=== PATIENT | male | born 1955 | race American Indian/Alaskan Native ===

== ENCOUNTER 2018-03-02 13:39 | Emergency (ER) | payer MEDICARE ==
[2018-03-02] MEDS ORDERED: TORADOL IM ONE (17:48)
--- NOTE | 2018-03-02 18:54 | Emergency Department Report ---
ED Fall HPI - General Chief Complaint: Fall Stated Complaint: BACK PAIN/SOB/PAIN Time Seen by Provider: 03/02/18 17:40 Source: patient Mode of arrival: Ambulatory - History of Present Illness Initial Comments: This is a 62-year-old male nontoxic, well nourished in appearance, no acute signs of distress presents to the ED with c/o of acute mid back and left rib pain. Patient stated he had a 6 feet fall from a ladder 1 week ago and landed on his left rib/mid back area. Patient denies any head trauma or neck trauma. Patient denies any radiation of pain. Patient denies any other trauma. Denies any bladder or bowel instability. Patient denies any abdominal pain or lower back pain. Patient denies any urinary symptoms. Denies any fever, chills, nausea, vomiting, headache, stiff neck, chest pain or shortness of breath. Patient denies any numbness or tingling. Denies any allergies. PMH includes HTN. MD Complaint: fall -: week(s) (1) Fall From: from height (distance) (6) Fall Witnessed: no Loss of Consciousness: none Prolonged Down Time?: no Symptoms Prior to Fall: none Severity: mild Severity scale (0 -10): 8 Quality: aching Associated Symptoms: denies. denies: headache, neck pain, numbness, weakness, chest paint, shortness of breath, abdominal pain, hematuria, unable to walk, lightheaded, vertigo, confusion - Related Data Previous Rx's Medication Instructions Recorded Last Taken Type Cyclobenzaprine [Flexeril] 10 mg PO QHS PRN #10 tablet 03/02/18 Unknown Rx Ibuprofen [Motrin] 600 mg PO Q8H PRN #30 tablet 03/02/18 Unknown Rx levoFLOXacin [Levaquin TAB] 750 mg PO QDAY #5 tablet 03/02/18 Unknown Rx Allergies Allergy/AdvReac Type Severity Reaction Status Date / Time No Known Allergies Allergy Unverified 03/02/18 13:54 ED Review of Systems ROS: Stated complaint: BACK PAIN/SOB/PAIN Other details as noted in HPI Constitutional: denies: chills, fever Eyes: denies: eye pain, eye discharge, vision change ENT: denies: ear pain, throat pain Respiratory: denies: cough, shortness of breath, wheezing Cardiovascular: other (left rib pain). denies: chest pain, palpitations Endocrine: no symptoms reported Gastrointestinal: denies: abdominal pain, nausea, diarrhea Genitourinary: denies: urgency, dysuria Musculoskeletal: back pain. denies: joint swelling, arthralgia Skin: denies: rash, lesions Neurological: denies: headache, weakness, paresthesias Psychiatric: denies: anxiety, depression Hematological/Lymphatic: denies: easy bleeding, easy bruising ED Past Medical Hx - Past Medical History Hx Hypertension: Yes - Surgical History Additional Surgical History: neck, knee, elbow - Social History Smoking Status: Never Smoker Substance Use Type: None - Medications Home Medications: Home Medications Medication Instructions Recorded Confirmed Last Taken Type Cyclobenzaprine [Flexeril] 10 mg PO QHS PRN #10 tablet 03/02/18 Unknown Rx Ibuprofen [Motrin] 600 mg PO Q8H PRN #30 tablet 03/02/18 Unknown Rx levoFLOXacin [Levaquin TAB] 750 mg PO QDAY #5 tablet 03/02/18 Unknown Rx ED Physical Exam - General Limitations: No Limitations General appearance: alert, in no apparent distress - Head Head exam: Present: atraumatic, normocephalic - Eye Eye exam: Present: normal appearance Pupils: Present: normal accommodation - ENT ENT exam: Present: normal exam, mucous membranes moist - Neck Neck exam: Present: normal inspection, full ROM. Absent: tenderness, meningismus, lymphadenopathy - Respiratory Respiratory exam: Present: normal lung sounds bilaterally, chest wall tenderness (left lateral rib area). Absent: respiratory distress, wheezes, rales, rhonchi, stridor, accessory muscle use, decreased breath sounds, prolonged expiratory - Cardiovascular Cardiovascular Exam: Present: regular rate, normal rhythm, normal heart sounds. Absent: bradycardia, tachycardia, irregular rhythm, systolic murmur, diastolic murmur, rubs, gallop - GI/Abdominal GI/Abdominal exam: Present: soft, normal bowel sounds. Absent: distended, tenderness, guarding, rebound, rigid, diminished bowel sounds - Rectal Rectal exam: Present: deferred - Extremities Exam Extremities exam: Present: normal inspection, full ROM, normal capillary refill. Absent: tenderness, joint swelling - Back Exam Back exam: Present: normal inspection, full ROM, paraspinal tenderness ( thoracic paraspinal). Absent: tenderness, CVA tenderness (R), CVA tenderness (L ), muscle spasm, vertebral tenderness, rash noted - Expanded Back Exam Expanded Back exam: Absent: saddle anesthesia Back exam: Negative Straight Leg Raising: Left, Right - Neurological Exam Neurological exam: Present: alert, oriented X3, CN II-XII intact, normal gait - Expanded Neurological Exam Expanded Patient oriented to: Present: person, place, time Cranial nerves: EOM's Intact: Normal, Facial Sensation: Normal Cerebellar function: Finger to Nose: Normal Upper motor neuron: Pronator Drift: Normal Sensory exam: Upper Extremity Light Touch: Normal, Upper Extremity Pin Prick: Normal, Upper Extremity Temperature: Normal, UE 2 Point Discrimination: Normal, Lower Extremity Light Touch: Normal, Lower Extremity Pin Prick: Normal, Lower Extremity Temperature: Normal, LE 2 Point Discrimination: Normal Motor strength exam: RUE: 5, LUE: 5, RLE: 5, LLE: 5 Best Eye Response ([place]): (4) open spontaneously Best Motor Response ([place]): (6) obeys commands Best Verbal Response ([place]): (5) oriented [place] Total: 15 - Psychiatric Psychiatric exam: Present: normal affect, normal mood - Skin Skin exam: Present: warm, dry, intact, normal color. Absent: rash ED Course Vital Signs 03/02/18 13:54 Temperature 98.6 F Pulse Rate 66 Respiratory 18 Rate Blood Pressure 160/96 O2 Sat by Pulse 98 Oximetry - Reevaluation(s) Reevaluation #1: 03/02/18 19:09 Patient is speaking in full sentences with no signs of distress noted. ED Medical Decision Making - Medical Decision Making This is a 62-year-old male that presents with left rib contusion and thoracic spine strain. Patient is stable was examined by me. There is no spinal tenderness. There is no cauda equina syndrome during examination. No bladder or bowel instability. Ct scan of throacic and chest obtained and dictated by the radiologist. Patient was discussed of the findings and referred to oncologist for further evaluation. CT also shows that there is atelectasis versus infiltrate due to patient age I will start patient empirically with antibiotics. Patient received Toradol 30 mg IM and [place] in the ED which stated that his symptoms has resolved and subsided. There is no ecchymosis, swelling noted. Patient is discharged with muscle relaxant and Motrin. Patient was instructed not to operate any machinery while taking muscle relaxant as they cause her drowsiness. Patient was referred to Follow-up with a primary care doctor in 3-5 days or if symptoms worsen and continue return to emergency room as soon as possible. At time of discharge, the patient does not seem toxic or ill in appearance. No acute signs of distress noted. Patient agrees to discharge treatment plan of care. No further questions noted by the patient. This chart is dictated with using [employer] Critical care attestation.: If time is entered above; I have spent that time in minutes in the direct care of this critically ill patient, excluding procedure time. ED Disposition Clinical Impression: Fall Qualifiers: Encounter type: initial encounter Qualified Code(s): W19.XXXA - Unspecified fall, initial encounter Contusion of rib on left side Qualifiers: Encounter type: initial encounter Qualified Code(s): S20.212A - Contusion of left front wall of thorax, initial encounter Strain of thoracic spine Qualifiers: Encounter type: initial encounter Qualified Code(s): S29.019A - Strain of muscle and tendon of unspecified wall of thorax, initial encounter Disposition: DC-01 TO HOME OR SELFCARE Is pt being admited?: No Does the pt Need Aspirin: No Condition: Stable Instructions: Cyclobenzaprine (By mouth), Fall Prevention for Older Adults (ED) , Contusion in Adults (ED) Additional Instructions: Follow-up with a primary care/oncologist doctor in 3-5 days or if symptoms worsen and continue return to emergency room as soon as possible. Prescriptions: Cyclobenzaprine [Flexeril] 10 mg PO QHS PRN #10 tablet PRN Reason: Muscle Spasm Ibuprofen [Motrin] 600 mg PO Q8H PRN #30 tablet PRN Reason: Pain levoFLOXacin [Levaquin TAB] 750 mg PO QDAY #5 tablet Referrals: RAYSA SHAW MD [Primary Care Provider] - 3-5 Days PRIMARY CARE, [Referring] - 3-5 Days BITA MIRZA MD [Staff Physician] - 3-5 Days [facility] [Outside] - 3-5 Days Forms: Work/School Release Form(ED)
[2018-03-02] MEDS ORDERED: NORCO 7.5/325 PO ONE (19:06)
--- NOTE | 2018-03-02 19:25 | Cat Scan Report ---
FINAL REPORT EXAM: CT CHEST WO CON HISTORY: chest/thoracic spinal pain status post fall 6 feet. Left-sided thoracic/rib pain. TECHNIQUE: Axial helical imaging through the chest with sagittal and coronal reformatted images obtained. Comparison: CT thoracic spine also performed today FINDINGS: There is a small area of pulmonary consolidation in the medial aspect of the right upper lobe. Atelectasis versus infiltrate. There is no evidence of pneumothorax or pleural fluid collection. The trachea and bronchi are patent. Heart appears to be enlarged. There is atherosclerotic vascular calcification of the coronary arteries. The thoracic aorta is normal caliber. There are calcified mediastinal lymph nodes consistent with chronic granulomatous change. There is no evidence of pathologic intrathoracic adenopathy by CT size criteria. The visualized portion of the upper abdomen is notable for evidence of previous gastric banding procedure. The bony structures are notable for spondylitic change of the thoracic spine with multiple level degenerative facet change. Additionally there are numerous foci lytic change within the bony structures concerning for lytic bony metastases or possibly changes of multiple myeloma. There is no evidence of fracture. The visualized portion of the cervical spine is notable for marked canal stenosis in the lower cervical spine. IMPRESSION: 1. Small area pulmonary consolidation medial aspect right upper lobe. Atelectasis versus infiltrate. 2. Heart appears to be enlarged with evidence of atherosclerotic vascular calcification of the coronary arteries. 3. Calcified lymph nodes that likely represents chronic granulomatous change. 4. Previous gastric banding procedure. 5. Spondylitic change thoracic spine. 6. Numerous foci of lytic change in the bony structures concerning for lytic bony metastases or possible changes of multiple myeloma. 7. Marked canal stenosis lower cervical spine. 8. No evidence of fracture. The finding of lytic changes within the bones was discussed with JOSH Lazo at 7:20 p.m. March 02, 2018.
--- NOTE | 2018-03-02 19:26 | Cat Scan Report ---
FINAL REPORT EXAM: CT THORACIC SPINE WO CON HISTORY: chest/thoracic spinal pain status post fall 6 feet. Left-sided chest rib/thoracic pain TECHNIQUE: Axial helical imaging through the thoracic spine with sagittal and coronal reformatted images obtained. Comparison: CT chest also performed today FINDINGS: Bony alignment is normal. The vertebral heights and disc spaces appear to be maintained. There is multiple level degenerative facet change in the thoracic spine. There is the appearance of the marked canal and foraminal stenosis in the visualized portion of the lower cervical spine. There are multiple foci of lytic change suggestive of bony metastases or possible changes of multiple myeloma. Visualization detail of the contents of the thoracic canal is limited by artifact. The paraspinous soft tissues are unremarkable. IMPRESSION: 1. Multiple foci of lytic change suggestive of bony metastases or possible changes of multiple myeloma 2. Spondylitic change thoracic spine and lower cervical spine with evidence of marked canal stenosis and foraminal stenosis in the visualized portion of the lower cervical spine. 3. Visualization detail of the contents of the thoracic canal is limited by artifact. If further imaging is required and if there is no clinical contraindication, MRI may be helpful. The finding of lytic changes within the bones was discussed with JOSH Lazo at 7:20 p.m. March 02, 2018.
[2018-03-02 20:22] VITALS: BP 177/104
== END 2018-03-02 20:20 | disposition home or self-care (01) ==
LOC: ED 13:39
DX: S29.019A Strain of muscle and tendon of unspecified wall of thorax, initial encounter (principal); S20.212A Contusion of left front wall of thorax, initial encounter; I10 Essential (primary) hypertension; W11.XXXA Fall on and from ladder, initial encounter; Y93.89 Activity, other specified; Y99.8 Other external cause status; Y92.89 Other specified places as the place of occurrence of the external cause
CPT/HCPCS: 71250; 72128; 96372; 99283; J1885